=== PATIENT | male | born 1980 | race Caucasian/White ===

== ENCOUNTER 2023-06-26 23:10 | Emergency (ER) | payer BC, OTHER ==
[2023-06-26] MEDS: HYDROmorphone 1 MG/ML Syringe IVPUSH ONE (23:45)
[2023-06-26 23:54] LABS: BASOPHILS PERCENT AUTO 0.6 % (0.2-1.2); EOSINOPHILS ABSOLUTE AUTO 0.1 x10^3/uL (0.0-0.5); EOSINOPHILS PERCENT AUTO 0.9 % (0.0-4.0); HEMATOCRIT 42.2 % (40.0-52.0); HEMOGLOBIN 15.6 g/dL (14.0-18.0); IMMATURE GRAN ABSOLUTE AUTO 0.01 x10^3/uL (0.00-0.07); LYMPHOCYTES ABSOLUTE AUTO 2.1 x10^3/uL (1.0-4.8); LYMPHOCYTES PERCENT AUTO 32.3 % (25.0-50.0); MEAN CORPUSCULAR VOLUME 83.9 fL (78.0-93.0); MONOCYTES ABSOLUTE AUTO 0.6 x10^3/uL (0.0-0.8); MONOCYTES PERCENT AUTO 8.9 % (2.0-11.0); NEUTROPHILS ABSOLUTE AUTO 3.8 x10^3/uL (1.8-7.7); NEUTROPHILS PERCENT AUTO 57.1 % (50.0-80.0); PLATELET COUNT,PLT 217 x10^3/uL (130-400); RED BLOOD CELL COUNT 5.03 x10^6/uL (4.5-6.0); WHITE BLOOD CELL COUNT,WBC 6.6 x10^3/uL (4.0-10.0)
[2023-06-27] MEDS: Sodium Chloride 0.9% 10 ML Syringe FLUSH PRN (00:04)
[2023-06-27 00:17] LABS: INR 0.9 (2.0-3.5); PROTHROMBIN TIME 10.1 SEC (9.5-12.2); PTT,PARTIAL THROMBOPLSTIN TIME 27.8 SEC (23.6-33.6)
[2023-06-27 00:26] LABS: A/G RATIO 1.05; ALANINE AMINOTRANSFERASE,ALT 70 U/L (16-63); ALKALINE PHOSPHATASE 72 U/L (46-116); ASPARTATE AMNIOTRANSFERASE,AST 34 U/L (15-37); BILIRUBIN TOTAL 0.5 mg/dL (0.2-1.0); BLOOD UREA NITROGEN,BUN 11 mg/dL (7-18); C-REACTIVE PROTEIN 0.37 mg/dL (<=0.30); CALCIUM 9.3 mg/dL (8.5-10.1); CARBON DIOXIDE,CO2 25 mmol/L (21-32); CHLORIDE,CL 99 mmol/L (98-107); CREATININE 1.5 mg/dL (0.70-1.30); ETHANOL BLOOD MEDICAL 101 mg/dL (0-3); GLUCOSE RANDOM 132 mg/dL (70-99); MAGNESIUM 1.9 mg/dL (1.8-2.4); PHOSPHORUS 3.5 mg/dL (2.6-4.7); POTASSIUM,K 3.4 mmol/L (3.5-5.1); PRO B-TYPE NATRIUR PEPT,BNPPRO 14 pg/mL (<=125); PROTEIN TOTAL,TP 7.8 g/dL (6.4-8.2); SODIUM,NA 140 mmol/L (136-145); TSH ULTRASENSITIVE 1.294 uIU/mL (0.358-3.74)
[2023-06-27 00:28] LABS: ANION GAP 19.4 mmol/L (5-15); ESTIMATED GFR 59 mL/min (>=60)
[2023-06-27 00:29] LABS: LACTIC ACID 5.5 mmol/L (0.4-2.0)
[2023-06-27] MEDS: Lactated Ringers 1,000 ML IV ONE (00:52)
[2023-06-27 01:30] VITALS: PULSE 90
[2023-06-27 01:42] VITALS: BP 126/83
== END 2023-06-27 01:38 | disposition left against medical advice (07) ==
LOC: VM.ED 23:10
DX: R07.9 Chest pain, unspecified (principal); N18.30 Chronic kidney disease, stage 3 unspecified; Z87.891 Personal history of nicotine dependence
CPT/HCPCS: 36415; 71045; 80053; 80307; 83605; 83735; 83880; 84100; 84443; 84484; 85025; 85379; 85610; 85730; 86140; 93005; 93010; 96361; 96374; 99284; 99285-25; J1170; J3490; J7120